=== PATIENT | male | born 1990 | race Hispanic/Latino ===

== ENCOUNTER → 2022-01-16 | Day surgery (SDC) | payer OTHER ==
[2022-01-16 08:35] VITALS: BP 138/89
== END | disposition home or self-care (01) ==
LOC: OR 06:03
PROVIDERS: ATTEND Internal Medicine Gastroenterology
DX: K29.50 Unspecified chronic gastritis without bleeding (principal); K31.89 Other diseases of stomach and duodenum; K20.90 Esophagitis, unspecified without bleeding; K21.9 Gastro-esophageal reflux disease without esophagitis; E66.9 Obesity, unspecified; Z86.19 Personal history of other infectious and parasitic diseases; Z86.16 Personal history of COVID-19
CPT/HCPCS: 43239; 88305; 88312; 88342